=== PATIENT | male | born 1970 | race African-American/Black ===

== ENCOUNTER 2019-01-31 00:29 | Emergency (ER) | payer MEDICAID ==
[~2019-01-31] VITALS: Ht 180.3 cm; Wt 111.0 kg
[2019-01-31] MEDS ORDERED: AMLODIPINE 2.5MG TABLET PO ONE (01:30)
[2019-01-31 02:48] VITALS: BP 173/113
== END 2019-01-31 02:51 | disposition home or self-care (01) ==
LOC: ER 00:29
DX: R55 Syncope and collapse (principal); S00.31XA Abrasion of nose, initial encounter; R00.0 Tachycardia, unspecified; I10 Essential (primary) hypertension; Z63.4 Disappearance and death of family member; W01.0XXA Fall on same level from slipping, tripping and stumbling without subsequent striking against object, initial encounter; Y93.89 Activity, other specified; Y92.230 Patient room in hospital as the place of occurrence of the external cause
CPT/HCPCS: 82962; 93005; 99284

== ENCOUNTER 2019-07-07 06:00 | Emergency (ER) | payer MEDICAID ==
[~2019-07-07] VITALS: Ht 177.8 cm; Wt 104.0 kg
[2019-07-07] MEDS ORDERED: PREDNISONE 20MG TABLET PO ONE (07:45)
[2019-07-07] MEDS ORDERED: ALBUTEROL (0.083%) 2.5MG/3ML NEB HHN ONE (07:45)
[2019-07-07 09:31] VITALS: BP 144/91
== END 2019-07-07 09:47 | disposition home or self-care (01) ==
LOC: ER 06:36
DX: R05 Cough (principal); R09.81 Nasal congestion; I10 Essential (primary) hypertension; Z59.0 Homelessness
CPT/HCPCS: 71045; 93005; 94640; 99283; J7512; J7611; Z7610

== ENCOUNTER 2020-08-27 23:09 | Emergency (ER) | payer MEDICAID, OTHER ==
[~2020-08-27] VITALS: Ht 180.3 cm; Wt 110.0 kg
[2020-08-27] MEDS ORDERED: FLUORESCEIN SODIUM 1MG/STRIP LEFTEYE ONE (23:30)
[2020-08-27] MEDS ORDERED: TETRACAINE 0.5% OPHTH DROPS 4ML LEFTEYE ONE (23:30)
[2020-08-28 01:52] VITALS: BP 178/101
== END 2020-08-28 01:54 | disposition home or self-care (01) ==
LOC: ER 23:09
DX: H57.12 Ocular pain, left eye (principal); I10 Essential (primary) hypertension; Z91.14 Patient's other noncompliance with medication regimen; J34.2 Deviated nasal septum
CPT/HCPCS: 70480; 99284

== ENCOUNTER 2021-06-29 22:32 | Emergency (ER) | payer MEDICAID, OTHER ==
[~2021-06-29] VITALS: Ht 177.8 cm; Wt 100.0 kg
[2021-06-29 23:34] LABS: CHLORIDE 108 mEq/L (98-107)
[2021-06-29 23:37] LABS: BASOPHILS % 0.8 % (0.0-2.0); EOSINOPHILS % 1.8 % (0.0-5.0); HEMATOCRIT. 47.3 % (42.0-52.0); HEMOGLOBIN. 15.9 g/dL (14.0-18.0); LYMPHOCYTES % 39.9 % (20.0-50.0); MEAN CORPUSCULAR HEMOGLOBIN 29.6 pg (28.0-32.0); MEAN PLATELET VOLUME 9.3 fl (7.4-10.4); MONOCYTES % 8.1 % (2.0-8.0); NEUTROPHILS % 49.4 % (40.0-76.0); PLATELET 206 x1000/uL (130-400); RED BLOOD CELL COUNT 5.37 mill/uL (4.7-6.1)
[2021-06-29] MEDS ORDERED: SODIUM CHLORIDE 0.9% 1,000 ML IV ONE (23:45)
[2021-06-29] MEDS ORDERED: HYDROCHLOROTHIAZIDE 12.5MG CAPSULE PO ONE (23:45)
[2021-06-29 23:52] LABS: BG BASE EXCESS 0.8 mmol/L (-2.0-2.0); BG CARBOXYHEMOGLOBIN 5.6 % (0.5-1.5); BG DEOXYHEMOGLOBIN 4.5 % (0.0-5.0); BG HCO3 ACT 26.4 mmol/L (22.0-26.0); BG METHEMOGLOBIN 0.1 % (0.0-1.5); BG OXYGEN SATURATION 95.2 % (92.0-98.5); BG OXYHEMOGLOBIN 89.8 % (94.0-97.0); BG PCO2 45.6 mmHg (35.0-45.0); BG PH 7.381 (7.350-7.450); BG PO2 78.4 mmHg (75.0-100.0); BG SAMPLE SITE RIGHT RADIAL; BG TOTAL HEMOGLOBIN 16.5 g/dL (12.0-18.0); BG VENT MODE ROOM AIR
[2021-06-30 01:37] LABS: CLARITY URINE CLEAR (CLEAR); COLOR URINE YELLOW (YELLOW); KETONES URINE NEGATIVE (NEGATIVE); LEUKOCYTE ESTERASE URINE NEGATIVE (NEGATIVE); NITRITE URINE NEGATIVE (NEGATIVE); OCCULT BLOOD URINE NEGATIVE (NEGATIVE); PROTEIN URINE NEGATIVE (NEGATIVE); SPECIFIC GRAVITY URINE 1.015 (1.005-1.030)
[2021-06-30] MEDS ORDERED: HYDR12.54 MT (02:18)
[2021-06-30 02:42] VITALS: BP 154/100
== END 2021-06-30 02:43 | disposition home or self-care (01) ==
LOC: ER 22:32
DX: I10 Essential (primary) hypertension (principal); N17.9 Acute kidney failure, unspecified
CPT/HCPCS: 36415; 36600; 80053; 81003; 82375; 82805; 84484; 85025; 93005; 96360; 99284; J7030

== ENCOUNTER 2022-08-24 20:58 | Emergency (ER) | payer MEDICAID, OTHER ==
[~2022-08-24] VITALS: Ht 177.8 cm; Wt 97.0 kg
[~2022-08-24 20:58] MED LIST: HYDR12.54 MT
[2022-08-24 21:57] VITALS: BP 200/149
[2022-08-24] MEDS ORDERED: CLONIDINE 0.1MG TABLET PO ONE (22:45)
[2022-08-24 23:42] LABS: BASOPHILS % 0.4 % (0.0-2.0); EOSINOPHILS % 1.2 % (0.0-5.0); HEMATOCRIT. 47.8 % (42.0-52.0); HEMOGLOBIN. 16.2 g/dL (14.0-18.0); LYMPHOCYTES % 37.8 % (20.0-50.0); MEAN CORPUSCULAR HEMOGLOBIN 29.8 pg (28.0-32.0); MEAN CORPUSCULAR VOLUME 88.2 fL (80.0-94.0); MEAN PLATELET VOLUME 9.5 fl (7.4-10.4); MONOCYTES % 8.3 % (2.0-8.0); NEUTROPHILS % 52.3 % (40.0-76.0); PLATELET 205 x1000/uL (130-400); RED BLOOD CELL COUNT 5.42 mill/uL (4.7-6.1); RED CELL DISTRIBUTION WIDTH 14.8 % (11.6-14.6)
[2022-08-24 23:44] LABS: CHLORIDE 103 mEq/L (98-107)
[2022-08-24 23:45] LABS: PROTHROMBIN TIME 10.4 sec (9.6-11.0)
[2022-08-25] MEDS ORDERED: AMLO5TAB88 MT (00:07)
== END 2022-08-25 00:38 | disposition home or self-care (01) ==
LOC: ER 20:58
DX: R04.0 Epistaxis (principal); I10 Essential (primary) hypertension; Z68.30 Body mass index [BMI] 30.0-30.9, adult
CPT/HCPCS: 36415; 80048; 85025; 99283